=== PATIENT | female | born 1985 | race Caucasian/White ===

== ENCOUNTER → 2021-01-11 | Outpatient (CLI) | payer OTHER ==
--- NOTE | 2021-01-11 17:29 | REP ---
INDICATION: PAIN. COMPARISON: None. TECHNIQUE: Four views 2nd digit right hand FINDINGS: There is no acute fracture or destructive osseous lesion. IMPRESSION: No bony abnormality. <Electronically signed by Daniel Persaud > 01/11/21 2227
== END ==
LOC: M WUC 10:32
PROVIDERS: ATTEND Physician Assistant Medical
DX: M79.644 Pain in right finger(s) (principal)

== ENCOUNTER → 2022-08-26 | Outpatient (CLI) | payer OTHER ==
[2022-08-26 17:23] LABS: HEMATOCRIT 39.3 % (36.0-47.0); HEMOGLOBIN 12.8 g/dl (12.0-15.5); MEAN CORPUSCULAR HEMOGLOBIN 29.4 pg (27.0-33.0); MEAN CORPUSCULAR HGB CONC 32.6 g/dl (32.0-36.5); MEAN CORPUSCULAR VOLUME 90.1 fl (80.0-96.0); PLATELET COUNT, AUTOMATED 303 10^3/uL (150-450); RED BLOOD COUNT 4.36 10^6/uL (4.00-5.40); WHITE BLOOD COUNT 9.6 10^3/uL (4.0-10.0)
[2022-08-26 17:46] LABS: URIC ACID 3.2 MG/DL (3.1-7.8)
[2022-08-26 17:47] LABS: LDH LACTATE DEHYDROGENASE 148 U/L (120-246)
[2022-08-26 17:49] LABS: ALT/SGPT 15 U/L (7.0-40); AST/SGOT 13 U/L (<34); BILIRUBIN,TOTAL 0.4 MG/DL (0.3-1.2); GLOMERULAR FILTRATION RATE > 60.0 (>60)
[2022-08-26 18:21] LABS: HIV 1&2 SCREEN CENTAUR NEGATIVE (NEGATIVE)
[2022-08-26 18:29] LABS: HEPATITIS C VIRUS ABY INDEX 0.1 INDEX (<0.8)
[2022-08-26 19:30] LABS: CREATININE,RANDOM URINE < 13.0 MG/DL
[2022-08-26 19:33] LABS: TOTAL PROTEIN,RANDOM URINE < 6.0 MG/DL (0.0-14.0)
[2022-08-26 20:14] LABS: GC DNA AMPLIFICATION NEGATIVE (NEGATIVE)
== END ==
LOC: M PLALAB 16:02
PROVIDERS: ATTEND Advanced Practice Midwife
DX: Z34.81 Encounter for supervision of other normal pregnancy, first trimester (principal)

== ENCOUNTER → 2022-09-02 | Outpatient (CLI) | payer OTHER | LOC: M PLALAB 09:54 | PROVIDERS: ATTEND Advanced Practice Midwife | DX: Z34.81 Encounter for supervision of other normal pregnancy, first trimester (principal); Z3A.00 Weeks of gestation of pregnancy not specified ==

== ENCOUNTER → 2022-10-31 | Outpatient (CLI) | payer OTHER | LOC: M WHC 06:39 | PROVIDERS: ATTEND Obstetrics & Gynecology | DX: O09.522 Supervision of elderly multigravida, second trimester (principal) ==

== ENCOUNTER → 2022-12-24 | Outpatient (CLI) | payer OTHER ==
[2022-12-24 10:41] LABS: HEMATOCRIT 38.3 % (36.0-47.0); HEMOGLOBIN 12.2 g/dl (12.0-15.5); MEAN CORPUSCULAR HEMOGLOBIN 29.1 pg (27.0-33.0); MEAN CORPUSCULAR HGB CONC 31.9 g/dl (32.0-36.5); MEAN CORPUSCULAR VOLUME 91.4 fl (80.0-96.0); PLATELET COUNT, AUTOMATED 245 10^3/uL (150-450); RED BLOOD COUNT 4.19 10^6/uL (4.00-5.40); WHITE BLOOD COUNT 7.9 10^3/uL (4.0-10.0)
== END ==
LOC: M PLALAB 07:52
PROVIDERS: ATTEND Advanced Practice Midwife
DX: O09.522 Supervision of elderly multigravida, second trimester (principal); Z3A.00 Weeks of gestation of pregnancy not specified
CPT/HCPCS: 36415; 82950; 85027; 86850; 86900; 86901; G0463; J2790

== ENCOUNTER → 2023-01-06 | Outpatient (CLI) | payer OTHER | LOC: M LAB 08:08 | PROVIDERS: ATTEND Advanced Practice Midwife | DX: O99.810 Abnormal glucose complicating pregnancy (principal); Z3A.00 Weeks of gestation of pregnancy not specified ==

== ENCOUNTER → 2023-02-19 | Outpatient (CLI) | payer OTHER ==
[2023-02-19 16:52] LABS: HEMOGLOBIN 12.4 g/dl (12.0-15.5); MEAN CORPUSCULAR HEMOGLOBIN 30.1 pg (27.0-33.0); MEAN CORPUSCULAR HGB CONC 32.6 g/dl (32.0-36.5); MEAN CORPUSCULAR VOLUME 92.2 fl (80.0-96.0); PLATELET COUNT, AUTOMATED 238 10^3/uL (150-450); RED BLOOD COUNT 4.12 10^6/uL (4.00-5.40); WHITE BLOOD COUNT 9.9 10^3/uL (4.0-10.0)
[2023-02-19 16:54] LABS: TOTAL PROTEIN,RANDOM URINE 8.6 MG/DL (0.0-14.0)
[2023-02-19 16:57] LABS: URIC ACID 4.6 MG/DL (3.1-7.8)
[2023-02-19 16:59] LABS: CREATININE,RANDOM URINE 61.7 MG/DL
[2023-02-19 17:00] LABS: ALT/SGPT 10 U/L (7.0-40); AST/SGOT 17 U/L (<34); BILIRUBIN,TOTAL 0.4 MG/DL (0.3-1.2); CREATININE FOR GFR 0.41 MG/DL (0.55-1.30); GLOMERULAR FILTRATION RATE > 60.0 (>60); LDH LACTATE DEHYDROGENASE 190 U/L (120-246)
== END ==
LOC: M PLALAB 13:14
PROVIDERS: ATTEND Advanced Practice Midwife
DX: O13.3 Gestational [pregnancy-induced] hypertension without significant proteinuria, third trimester (principal)
CPT/HCPCS: 36415; 59025; 82247; 82570; 83615; 84156; 84450; 84460; 84550; 85027; 90471; 90686; G0463

== ENCOUNTER → 2023-02-26 | Outpatient (REF) | payer OTHER ==
[~2023-02-26] MED LIST: ASPI81TA26 PO; BABY ASA PO; LABE20TAB PO; PEPC1TAB5 PO; PRENTAB9 PO; TUMS500C PO
== END ==
LOC: M PLALAB 08:51
PROVIDERS: ATTEND Advanced Practice Midwife
DX: O13.3 Gestational [pregnancy-induced] hypertension without significant proteinuria, third trimester (principal)
CPT/HCPCS: 59025; 87081; G0463

== ENCOUNTER → 2023-03-06 | Outpatient (CLI) | payer OTHER | LOC: M WHC 10:42 | PROVIDERS: ATTEND Advanced Practice Midwife | DX: O13.3 Gestational [pregnancy-induced] hypertension without significant proteinuria, third trimester (principal); Z3A.36 36 weeks gestation of pregnancy ==

== ENCOUNTER 2023-03-14 18:51 | Inpatient (IN) | payer OTHER ==
[~2023-03-14] VITALS: Ht 165.1 cm; Wt 86.0 kg
[2023-03-14 19:13] VITALS: BP 161/111
[2023-03-14 19:29] VITALS: BP 149/99
[2023-03-14 19:44] VITALS: BP 153/91
[2023-03-14 19:47] LABS: HEMATOCRIT 36.4 % (36.0-47.0); HEMOGLOBIN 12.4 g/dl (12.0-15.5); MEAN CORPUSCULAR HEMOGLOBIN 30.5 pg (27.0-33.0); MEAN CORPUSCULAR HGB CONC 34.1 g/dl (32.0-36.5); MEAN CORPUSCULAR VOLUME 89.7 fl (80.0-96.0); PLATELET COUNT, AUTOMATED 227 10^3/uL (150-450); RED BLOOD COUNT 4.06 10^6/uL (4.00-5.40); WHITE BLOOD COUNT 9.1 10^3/uL (4.0-10.0)
[2023-03-14 19:59] VITALS: BP 161/98
[2023-03-14] MEDS ORDERED: PEPC1TAB5 PO (20:17)
[2023-03-14] MEDS ORDERED: BABY ASA PO (20:17)
[2023-03-14] MEDS ORDERED: PRENTAB9 PO (20:17)
[2023-03-14] MEDS ORDERED: LIDOCAINE 1% MDV 20ML VIAL INFIL PRN (20:25)
[2023-03-14] MEDS ORDERED: OXYTOCIN DRIP 30 UNITS in IV 1 EA IV PRN (20:25)
[2023-03-14] MEDS: miSOPROStol 50MCG 1/2 TABLET PO SCH (20:37)
[2023-03-15] VITALS (34 sets, daily range): BP systolic 139–243; BP diastolic 74–116; O2SAT 97–98
[2023-03-15] MEDS ORDERED: diphenhydrAMINE 25MG CAP PO ONE
[2023-03-15] MEDS: miSOPROStol 50MCG 1/2 TABLET PO SCH ×2 (00:56→05:03)
[2023-03-15] MEDS ORDERED: OXYTOCIN DRIP 30 UNITS in IV 1 EA IV SCH (08:40)
[2023-03-15] MEDS: LR 1,000 ML IV SCH ×2 (08:56→10:25)
[2023-03-15] MEDS ORDERED: diphenhydrAMINE 50MG/ML VIAL IV PRN (10:50)
[2023-03-15] MEDS ORDERED: ONDANSETRON 4MG 2ML VIAL IV PRN (10:50)
[2023-03-15] MEDS ORDERED: LR 500 ML IV PRN (10:50)
[2023-03-15] MEDS ORDERED: EPIDURAL/PCA KEYS XX PRN (10:50)
[2023-03-15] MEDS ORDERED: ePHEDrine SULFATE 25 MG/5 ML(5MG/ML) SYRINGE IVP PRN (10:50)
[2023-03-15] MEDS ORDERED: FENTANYL/ROPIVACAINE/NACL BAG 100 ML EPIDURAL SCH (10:50)
[2023-03-15] MEDS ORDERED: NALOXONE INJ 0.4MG/1ML VIAL IV PRN (10:50)
[2023-03-15 12:52] LABS: CORD GAS ABE V -2.3; CORD GAS HCO3 V 23.6 MMOL/L; CORD GAS O2 SAT V 42.6 %; CORD GAS PCO2 V 44.8 mmHg; CORD GAS PH V 7.34 UNITS; CORD GAS PO2 V 18.5 mmHg; CORD GAS SBC V 21.1 MMOL/L
[2023-03-15 12:54] LABS: CORD GAS ABE A -6.9; CORD GAS HCO3 A 22.5 MMOL/L; CORD GAS O2 SAT A 35.9 %; CORD GAS PCO2 A 61.5 mmHg; CORD GAS PH A 7.182 UNITS; CORD GAS PO2 A 19.3 mmHg; CORD GAS SBC A 17.5 MMOL/L; CORD GAS TCO2 A 24.4 MMOL/L
[2023-03-15] MEDS ORDERED: IBUPROFEN 600MG TAB PO PRN (13:20)
[2023-03-15] MEDS ORDERED: METHYLERGONOVINE MALEATE 0.2 MG TAB PO PRN (13:20)
[2023-03-15] MEDS ORDERED: DIBUCAINE 1% OINTMENT 30GM TOP PRN (13:20)
[2023-03-15] MEDS ORDERED: ACETAMINOPHEN 500 MG TAB PO PRN (13:20)
[2023-03-15] MEDS ORDERED: ACETAMINOPHEN TAB 650MG DOSE (2X325MG) PO PRN (13:20)
[2023-03-15] MEDS ORDERED: RHOGAM 300MCG (1500IU) INJ IM SCH (13:20)
[2023-03-15] MEDS ORDERED: DOCUSATE SODIUM 100MG CAPSULE PO PRN (13:20)
[2023-03-15] MEDS: IBUPROFEN 800 MG TAB PO PRN (16:55)
[2023-03-16] VITALS (7 sets, daily range): BP systolic 140–159; BP diastolic 84–96; O2SAT 97–98
[2023-03-16] MEDS: IBUPROFEN 800 MG TAB PO PRN ×2 (05:23→21:02)
[2023-03-16] MEDS: PRENATAL VITAMINS CHEWABLE TABLET PO SCH (07:47)
[2023-03-16 11:32] LABS: HEMATOCRIT 33.6 % (36.0-47.0); HEMOGLOBIN 11.2 g/dl (12.0-15.5); MEAN CORPUSCULAR HEMOGLOBIN 30.8 pg (27.0-33.0); MEAN CORPUSCULAR HGB CONC 33.3 g/dl (32.0-36.5); MEAN CORPUSCULAR VOLUME 92.3 fl (80.0-96.0); PLATELET COUNT, AUTOMATED 191 10^3/uL (150-450); RED BLOOD COUNT 3.64 10^6/uL (4.00-5.40); WHITE BLOOD COUNT 10.3 10^3/uL (4.0-10.0)
[2023-03-16] MEDS ORDERED: TUMS500C PO (11:33)
[2023-03-16] MEDS ORDERED: HOME MED LIST COMPLETE! XX SCH (11:35)
[2023-03-16] MEDS ORDERED: LABETALOL 200 MG TAB PO ONE (12:00)
[2023-03-16 12:01] LABS: URIC ACID 4.7 MG/DL (3.1-7.8)
[2023-03-16 12:03] LABS: LDH LACTATE DEHYDROGENASE 210 U/L (120-246)
[2023-03-16 12:04] LABS: ALT/SGPT 11 U/L (7.0-40); AST/SGOT 19 U/L (<34); BILIRUBIN,TOTAL 0.2 MG/DL (0.3-1.2); CREATININE FOR GFR 0.43 MG/DL (0.55-1.30); GLOMERULAR FILTRATION RATE > 60.0 (>60)
[2023-03-16] MEDS ORDERED: ASPI81TA26 PO (15:25)
[2023-03-16] MEDS: LABETALOL 200 MG TAB PO SCH (20:57)
[2023-03-17 02:00] VITALS: BP 158/92; O2SAT 98
[2023-03-17 06:00] VITALS: BP 154/89; O2SAT 98
[2023-03-17 08:11] VITALS: BP 152/96
[2023-03-17] MEDS: PRENATAL VITAMINS CHEWABLE TABLET PO SCH (08:11)
[2023-03-17] MEDS: LABETALOL 200 MG TAB PO SCH (08:11)
[2023-03-17 08:12] VITALS: BP 152/96; O2SAT 98
[2023-03-17] MEDS ORDERED: MEASLES,MUMPS,RUBELLA VACCINE INJ (MMR-II) SC.IMMUN ONE (09:00)
[2023-03-17 10:00] VITALS: BP 143/93; O2SAT 97
[2023-03-17] MEDS ORDERED: LABE20TAB PO (10:46)
== END 2023-03-17 12:27 | disposition home or self-care (01) | DRG 807 ==
LOC: M LDI 18:51 → M OBS 03-15 20:27
PROVIDERS: ADMIT Specialist; ATTEND Specialist
PROC: 3E0P7GC Introduction of Other Therapeutic Substance into Female Reproductive, Via Natural or Artificial Opening (ICD-10-PCS; 2023-03-14)
PROC: 10E0XZZ Delivery of Products of Conception, External Approach (ICD-10-PCS; principal; 2023-03-15)
PROC: 0KQM0ZZ Repair Perineum Muscle, Open Approach (ICD-10-PCS; 2023-03-15)
PROC: 10907ZC Drainage of Amniotic Fluid, Therapeutic from Products of Conception, Via Natural or Artificial Opening (ICD-10-PCS; 2023-03-15)
DX: O13.4 Gestational [pregnancy-induced] hypertension without significant proteinuria, complicating childbirth (principal); Z37.0 Single live birth; Z3A.37 37 weeks gestation of pregnancy; O69.81X0 Labor and delivery complicated by cord around neck, without compression, not applicable or unspecified; O70.1 Second degree perineal laceration during delivery

== ENCOUNTER 2023-06-15 10:15 | Outpatient (RCR) | payer OTHER | END 2023-06-25 | LOC: M PT 10:15 | PROVIDERS: ATTEND Specialist | DX: N81.84 Pelvic muscle wasting (principal) ==

== ENCOUNTER 2023-07-21 09:55 | Outpatient (RCR) | payer OTHER | END 2023-07-26 | LOC: M PT 09:55 | PROVIDERS: ATTEND Specialist | DX: N81.84 Pelvic muscle wasting (principal) ==

== ENCOUNTER → 2023-08-25 | Outpatient (RCR) | payer OTHER | LOC: M PT 08-04 09:58 | PROVIDERS: ATTEND Specialist | DX: N81.84 Pelvic muscle wasting (principal) ==

== ENCOUNTER 2023-09-22 09:30 | Outpatient (RCR) | payer OTHER | END 2023-09-25 | LOC: M PT 09:30 | PROVIDERS: ATTEND Specialist | DX: N81.84 Pelvic muscle wasting (principal) ==

== ENCOUNTER → 2024-02-23 | Outpatient (REF) | payer OTHER ==
[2024-02-25 15:48] LABS: HPV APTIMA Not Detected (Not Detected)
== END ==
LOC: M SFHCWAGY 15:21
PROVIDERS: ATTEND Obstetrics & Gynecology
DX: Z12.4 Encounter for screening for malignant neoplasm of cervix (principal)
CPT/HCPCS: 87624; G0123